=== PATIENT | female | born 1970 | race Caucasian/White ===

== ENCOUNTER → 2021-04-21 08:57 | Outpatient (BNVA) | payer MEDICAID, SELFPAY | PROVIDERS: Family Provider Family Medicine; Visit Provider Specialist | DX: G62.1 Alcoholic polyneuropathy (principal); F44.5 Conversion disorder with seizures or convulsions; G25.0 Essential tremor; F10.21 Alcohol dependence, in remission; F17.200 Nicotine dependence, unspecified, uncomplicated | CPT/HCPCS: 99215; 99417 ==

== ENCOUNTER → 2021-09-28 12:29 | Outpatient (BNVA) | payer MEDICAID, SELFPAY | PROVIDERS: Family Provider Family Medicine; Referring Provider Specialist; Visit Provider Specialist | DX: G56.22 Lesion of ulnar nerve, left upper limb (principal); G56.03 Carpal tunnel syndrome, bilateral upper limbs; G62.1 Alcoholic polyneuropathy | CPT/HCPCS: 95913 ==

== ENCOUNTER → 2021-12-21 09:38 | Outpatient (BNVA) | payer MEDICAID, SELFPAY | PROVIDERS: Family Provider Family Medicine; Visit Provider Specialist | DX: F44.5 Conversion disorder with seizures or convulsions (principal); G62.9 Polyneuropathy, unspecified; F10.20 Alcohol dependence, uncomplicated; Z91.81 History of falling | CPT/HCPCS: 99213 ==

== ENCOUNTER → 2022-08-03 15:09 | Outpatient (BNVA) | payer MEDICAID, SELFPAY | PROVIDERS: Family Provider Family Medicine; Visit Provider Psychiatry & Neurology Psychiatry | DX: Z79.899 Other long term (current) drug therapy (principal) | CPT/HCPCS: 80053; 80061; 83036; 84443; 85025 ==

== ENCOUNTER → 2022-12-12 10:21 | Outpatient (BNVA) | payer MEDICAID, SELFPAY | PROVIDERS: Family Provider Family Medicine; PCP Family Medicine; Visit Provider Specialist | DX: G62.1 Alcoholic polyneuropathy (principal); F44.5 Conversion disorder with seizures or convulsions; G25.0 Essential tremor | CPT/HCPCS: 99213 ==

== ENCOUNTER → 2023-01-06 09:52 | Outpatient (BNVA) | payer MEDICAID, OTHER, SELFPAY | PROVIDERS: Family Provider Family Medicine; PCP Family Medicine; Visit Provider Emergency Medicine | DX: R73.09 Other abnormal glucose (principal) | CPT/HCPCS: 82962; 83036 ==